=== PATIENT | female | born 1995 | race Two or more races ===

== ENCOUNTER 2017-06-08 01:41 | Emergency (ER) | payer SELFPAY ==
[~2017-06-08] VITALS: Ht 160 cm; Wt 61.2 kg
[~2017-06-08 01:41] MED LIST: DM/P295L17 PO
[2017-06-08 01:50] VITALS: BP 133/93
[2017-06-08] MEDS ORDERED: ACETAMINOPHEN 325 MG TABLET ONE (02:10)
[2017-06-08] MEDS ORDERED: FAMOTIDINE (20 MG) 20 MG TABLET ONE (02:25)
[2017-06-08] MEDS: ACETAMINOPHEN 325 MG TABLET PO ONE (02:40)
[2017-06-08] MEDS: FAMOTIDINE (20 MG) 20 MG TABLET PO ONE (02:40)
--- NOTE | 2017-06-08 03:22 | NUR ---
CALLED [facility] TO EXPEDITE RADIOLOGY REPORTS
== END 2017-06-08 03:50 | disposition home or self-care (01) ==
LOC: ER 01:44
DX: S06.0X0A Concussion without loss of consciousness, initial encounter (principal); S16.1XXA Strain of muscle, fascia and tendon at neck level, initial encounter; S29.012A Strain of muscle and tendon of back wall of thorax, initial encounter; V43.52XA Car driver injured in collision with other type car in traffic accident, initial encounter; Y93.89 Activity, other specified; Y92.413 State road as the place of occurrence of the external cause; Y99.8 Other external cause status
CPT/HCPCS: 72050-TC; 72074-TC; A4606; Z7610

== ENCOUNTER 2020-07-25 17:21 | Emergency (ER) | payer SELFPAY ==
[~2020-07-25] VITALS: Ht 160 cm; Wt 63.5 kg
[2020-07-25 17:28] VITALS: BP 137/91
--- NOTE | 2020-07-25 17:33 | NUR ---
URINE SPECIMEN COLLECTED AND SENT TO LAB.
--- NOTE | 2020-07-25 17:40 | NUR ---
SEEN AND EXAMINED BY SHIELA ERVIN
[2020-07-25 18:01] LABS: BILIRUBIN,URINE Negative (NEGATIVE); COLOR,URINE YELLOW (YELLOW); LEUKOCYTE ESTERASE ,URINE Negative (NEGATIVE); NITRITE, URINE Negative (NEGATIVE); PROTEIN,URINE Negative (NEGATIVE); UGLUCOSE Negative (NEGATIVE); UROBILINOGEN,URINE 0.2 EU/dL (0.2)
--- NOTE | 2020-07-25 18:12 | NUR ---
Patient discharged to home in stable condition. Written and verbal after care instructions given. Patient verbalizes understanding of instruction.
[2020-07-25 18:33] LABS: BACTERIA,URINE Rare /HPF (None Seen); SQUAMOUS EPITHELIAL CELL,UR Few /HPF (None Seen); WBC,URINE NONE SEEN /HPF (0-3)
== END 2020-07-25 18:12 | disposition home or self-care (01) ==
LOC: ER 17:21
DX: N89.8 Other specified noninflammatory disorders of vagina (principal); Z79.899 Other long term (current) drug therapy
CPT/HCPCS: 81001; 84703-TC